=== PATIENT | female | born 1985 | race Caucasian/White ===

== ENCOUNTER 2019-12-24 12:14 | Outpatient (CLI) | payer BC ==
--- NOTE | 2019-12-25 10:15 | EEG ---
DATE OF SERVICE: DESCRIPTION OF THE RECORD: Waking background is a medium amplitude, 9 hertz alpha frequency. The patient remained awake throughout the study. Hyperventilation and photic stimulation were unremarkable. No epileptiform features were seen. IMPRESSION: This is a normal awake EEG. Job ID: [id number]
== END 2019-12-24 12:15 | disposition home or self-care (01) ==
LOC: EEG 12:14
PROVIDERS: ATTEND Psychiatry & Neurology Neurology
DX: G43.019 Migraine without aura, intractable, without status migrainosus (principal)
CPT/HCPCS: 95816